=== PATIENT | female | born 1950 | race Caucasian/White ===

== ENCOUNTER → 2017-05-04 | Outpatient (CLI) | payer BC | LOC: CARDREHAB 10:33 | DX: R06.09 Other forms of dyspnea (principal) ==

== ENCOUNTER → 2018-12-07 | Outpatient (CLI) | payer BC ==
[~2018-12-07] VITALS: Ht 170.2 cm; Wt 83.2 kg
[~2018-12-07] MED LIST: ACETAMINOPHEN500 M5 PO; CALCIUM 1,0001 EACH PO; COREG 25MG25 MG/TAB PO; HCTZ 25MG25 MG PO; IBU400 MG PO; NATURE'S BLEND1 TA6 PO; VITAMIN D32000 UNIT PO; ZOVIRAX400 M1 PO
[2018-12-07 11:03] VITALS: BP 140/76
[2018-12-07 11:35] LABS: BASO # 0.1 (0.02-0.10); EOS # 0.3 (0.04-0.40); EOS % 3.5 % (1.0-5.0); HEMATOCRIT 43.9 % (37.0-47.0); HEMOGLOBIN 14.7 g/dL (12.5-16.0); LYMPH# 1.5 (1.50-4.00); MEAN CELL VOLUME 89 fl (78-100); MEAN CORPUSCULAR HEMOGLOBIN 30 pg (27-31); MEAN CORPUSCULAR HGB CONC 34 g/dL (33-37); MEAN PLATELET VOLUME 9.9 fl (7.4-10.4); NEU # 6.3 (1.40-6.50); PLATELET COUNT 230 K/mm3 (130-400); RED BLOOD COUNT 4.94 M/mm3 (4.10-5.30); RED CELL DISTRIBUTION WIDTH 13.5 % (11.5-14.5); WHITE BLOOD COUNT 9.2 K/mm3 (4.8-10.8)
[2018-12-07 12:40] LABS: ALBUMIN 4.1 g/dL (3.4-4.8); ALT/SGPT 34 U/L (0-55); AST-SGOT 21 U/L (5-34); CALCIUM 10.5 mg/dL (8.4-10.2); CARBON DIOXIDE 30 mmol/L (23-31); GLUCOSE 109 mg/dL (65-105); POTASSIUM 3.4 mmol/L (3.5-5.1); SODIUM 141 mmol/L (136-145); TOTAL PROTEIN 7.1 g/dL (6.2-8.1)
[2018-12-07 12:56] LABS: TROPONIN-I < 0.03 ng/mL (<0.030)
[2018-12-07 13:17] VITALS: BP 130/82
[2018-12-07 15:16] LABS: URINE APPEARANCE HAZY; URINE COLOR YELLOW
[2018-12-07 15:17] LABS: URINE BILIRUBIN NEGATIVE (NEGATIVE); URINE BLOOD NEGATIVE (NEGATIVE); URINE GLUCOSE NEGATIVE (NEGATIVE); URINE KETONE NEGATIVE (NEGATIVE); URINE LEUKOCYTE ESTERASE 1+ (NEGATIVE); URINE NITRATE NEGATIVE (NEGATIVE); URINE PROTEIN(semi-quant) NEGATIVE (NEGATIVE); URINE UROBILINOGEN NORMAL (NORMAL)
[2018-12-07 16:39] VITALS: BP 131/80
[2018-12-08 03:58] LABS: PTH,INTACT 22.1 pg/mL (6.6-88.9)
[2018-12-08 06:24] LABS: CALCIUM, IONIZED, SERUM 1.34 mmol/L (1.19-1.41)
[2018-12-08 23:50] LABS: ANA SCREEN with REFLEX Negative (Negative)
== END ==
LOC: AMSURD 10:48
PROVIDERS: Nurse Practitioner Family
DX: M79.10 Myalgia, unspecified site (principal); R53.83 Other fatigue; R11.0 Nausea; R06.02 Shortness of breath; E86.0 Dehydration
CPT/HCPCS: J7040